=== PATIENT | female | born 1980 | race Caucasian/White ===

== ENCOUNTER 2021-12-28 12:37 | Emergency (ER) | payer BC, SELFPAY ==
[2021-12-28 13:24] VITALS: BP 131/88; PULSE 89; RESP 14; TEMP 37.2; O2SAT 93; BMI 31.8
--- NOTE | 2021-12-28 13:51 | CT_ITS ---
Final Report Patient: AKUA GARZA Facility:?[facility] Patient ID:?[id number] Site Patient ID:?[id number]. Site :?1980 Study:?CT Abdomen/Pelvis W/O-12/28/2021 3:22:45 PM Ordering Physician:Lizz Messina Final Report: INDICATION: Left flank pain. TECHNIQUE: CT abdomen and pelvis without contrast. COMPARISON: None. FINDINGS: Lower chest: Dependent atelectasis. Liver: Normal in size and attenuation. No suspicious masses. Gallbladder and bile ducts: No stones or inflammation. No biliary dilatation. Pancreas: Unremarkable. No mass or inflammation. Spleen: Normal in size. No masses. Adrenal glands: Normal in size. No nodules. Kidneys: Normal in size. No suspicious masses, stones, or hydronephrosis. Asymmetric left mild perinephric fat stranding. GI tract: Unremarkable. Normal in caliber. No sign of mass or inflammation. Normal appendix. Vasculature: Unremarkable. Lymph nodes: No lymphadenopathy. Abdominal wall/Omentum/Peritoneum: Unremarkable. No sign of mass or infiltration. No free air or significant free fluid. Pelvis: Uterus is surgically absent. Bones: Unremarkable for age. Degenerative disc disease at L5-S1. IMPRESSION: Mild asymmetric left perinephric fat stranding correlate with urinalysis for pyelonephritis. No stones or hydronephrosis. Please note that all CT scans at this facility use dose modulation, iterative reconstruction, and/or weight-based dosing when appropriate to reduce radiation dose to as low as reasonably achievable. Dictated by Cortez Martin MD @ 12/28/2021 3:41:01 PM (Electronic Signature)
--- NOTE | 2021-12-28 13:54 | CT_ITS ---
Final Report Patient: AKUA GARZA Facility:?[facility] Patient ID:?[id number] Site Patient ID:?[id number]. Site :?[id number] Study:?CT Chest W/65CC ISOVUE 370 PE PROTOCOL-12/28/2021 3:24:23 PM Ordering Physician:Lizz Messina Final Report: INDICATION: Chest pain, rule out PE. TECHNIQUE: CT chest PE was acquired with 95 cc Isovue 370 IV contrast. COMPARISON: None. FINDINGS: Heart and vasculature: Contrast opacification of the pulmonary arterial tree is adequate. No sign of pulmonary embolism. Heart size is normal. Thoracic aorta and pulmonary artery are normal in caliber. Lungs and pleural: No suspicious nodules or infiltrates. Bilateral bronchial wall thickening. Dependent atelectasis. No pleural effusions, pleural thickening, or pneumothorax. Lymph nodes/mediastinum: No mediastinal, hilar, or axillary adenopathy. Chest wall: No masses. Upper abdomen: No acute or significant findings. Bones: Unremarkable for age. IMPRESSION: 1. No evidence of pulmonary embolism. 2. Mild bilateral bronchial wall thickening. Please note that all CT scans at this facility use dose modulation, iterative reconstruction, and/or weight-based dosing when appropriate to reduce radiation dose to as low as reasonably achievable. Dictated by Cortez Martin MD @ 12/28/2021 4:02:01 PM (Electronic Signature)
--- NOTE | 2021-12-28 13:58 | ED.GENADULT ---
HPI - General Adult General Time Seen by Provider: 13:57 Date Seen: 12/28/21 Chief complaint: Abdominal Pain Stated complaint: Mid abdominal pain Time Seen by Provider: 12/28/21 13:10 Source: patient Mode of arrival: ambulatory Limitations: no limitations History of Present Illness HPI narrative: Patient is a 41-year-old white female has had a hysterectomy, and presents with left flank pain and lower mid the thoracic pain. This has been fine since yesterday. She had spells of this before in this month on the was seen at [facility], had an MRI scan of her back as well as a CT scan of her abdomen. These were unremarkable by her report, I do not have access to those records. The patient denies fever chills but describes significant pain with movement in her left lateral low back and midback thoracolumbar junction area. Denies any hematuria, dysuria, or urinary tract infection problems. She had blood work done and urinalysis done at [facility] and these apparently were unremarkable. She has had no skin rashes consistent with shingles. No COVID symptoms, no fevers, no chills, no rigors. No trauma. She does have chronic low back pain and takes tramadol for this. Related Data Home Medications Medication Instructions Recorded Confirmed citalopram 40 mg tablet mg 12/28/21 lisinopril 40 mg tablet mg 12/28/21 tramadol 50 mg tablet mg 12/28/21 Previous Rx's Medication Instructions Recorded sulfamethoxazole 800 1 tab PO BID 7 Days #14 tab 12/28/21 mg-trimethoprim 160 mg tablet tramadol 100 mg tablet 100 mg PO Q6H PRN #20 tab 12/28/21 Allergies Allergy/AdvReac Type Severity Reaction Status Date / Time No Known Drug Allergies Allergy Verified 12/28/21 14:01 Review of Systems Status of ROS: Reports: 10 or more systems reviewed and unremarkable except as noted in History and below [facility] Medical History No significant past medical history Social History Smoking Status: Current every day smoker What tobacco products do you use: cigarettes Do you use any of these nicotine containing products: None Second hand tobacco smoke exposure: Yes How often do you have a drink containing alcohol: 2-3 times a week AUDIT-C Alcohol total score: 3 Non-prescribed substance use: denies use service: No Exam Narrative: Exam Narrative: In general patient is in mild distress and discomfort. When she moves she winces with pain in her left lateral mid and low back. Vital signs unremarkable HEENT is unremarkable Neck is supple Pulses regular Abdomen benign soft nontender Mild left-sided abdominal and ribcage area tenderness lower. No real CVA tenderness, no rebound in the abdomen. No palpable masses. Skin exam shows no rashes about her trunk Neurologic is nonfocal good peripheral perfusion noted Mental status appropriate Const: Vital Signs, click to edit/add: Vital Signs - 24 hr 12/28/21 13:24 12/28/21 14:19 Temperature 99 F Pulse Rate [Pulse Oximeter] 89 73 Respiratory Rate 14 14 Blood Pressure [Ri ght Upper Arm] 131/88 127/100 H Pulse Oximetry 93 97 Course Course Hospital Course: Because of the patient's persistent complaints of left lateral chest and a abdominal discomfort. I think would be reasonable to repeat her CT scan make sure does not have a kidney stone that now is apparent, rib fracture, upper abdominal infection, pulmonary infection. She was in agreement. Will also give IV fluid, pain medic K obrien, and check labs Vital Signs Vital signs: Initial Vital Signs Temperature 99 F 12/28/21 13:24 Temperature Source Temporal Artery Scan 12/28/21 13:24 Pulse Rate 89 12/28/21 13:24 Pulse Rhythm 12/28/21 13:24 Respiratory Rate 14 12/28/21 13:24 Blood Pressure 131/88 12/28/21 13:24 Blood Pressure Mean 102 12/28/21 13:24 Pulse Oximetry 93 12/28/21 13:24 Oxygen Delivery Method 12/28/21 13:24 Vital Signs Temperature 99 F 12/28/21 13:24 Pulse Rate 89 12/28/21 13:24 Respiratory Rate 14 12/28/21 13:24 Blood Pressure 131/88 12/28/21 13:24 Pulse Oximetry 93 12/28/21 13:24 Temperature 99 F 12/28/21 13:24 Pulse Rate 73 12/28/21 14:19 Respiratory Rate 14 12/28/21 14:19 Blood Pressure 127/100 H 12/28/21 14:19 Pulse Oximetry 97 12/28/21 14:19 Medical Decision Making MDM Narrative Medical decision making narrative: The patient's CT scan shows some mild perinephric inflammation on the left. Her urinalysis looks pretty unremarkable, urine culture be obtained. I think given the findings on the left perinephric area and her left-sided flank pain, certainly pyelonephritis mild could be a consideration and will give her Rocephin IV, followed by Romel HOPKINS 1 p.o. b.i.d. x7 days at home. Will also refill 20 tramadol and she can use at for discomfort. Follow up with regular doctor by update tomorrow and recheck within a couple of days. Return return sooner problems or concerns Lab Data Labs: Lab Results 12/28/21 12/28/21 12/28/21 Range/Units 14:21 14:21 14:22 WBC 10.14 (4.50-11.00) K/uL RBC 3.87 L (4.00-5.20) m/uL Hgb 15.0 (12.0-16.0) gm/dL Hct 42.9 (33.0-51.0) % MCV 111 H (80-100) fL MCH 39 H (26-34) pg MCHC 35 (32-36) gm/dL RDW Coeff of Kelin 13.2 (11.5-15.5) % Plt Count 246 (140-440) K/uL Neut % (Auto) 73.3 H (42.0-72.0) % Lymph % (Auto) 19.9 L (20-44) % Young % (Auto) 6.0 (0.0-11.0) % Eos % (Auto) 0.4 (0.0-7.0) % Baso % (Auto) 0.1 (0.0-3.0) % Neut # (Auto) 7.40 H (1.7-7.0) K/uL Lymph # (Auto) 2.00 (0.90-2.90) K/uL Young # (Auto) 0.60 (0.00-0.90) K/UL Eos # (Auto) 0.04 (0.00-0.50) K/uL Baso # (Auto) 0.01 (0.00-0.30) K/uL Abs Immat Gran (auto) 0.03 (0.00-0.30) K/uL Sodium 136 (135-149) mmol/L Potassium 4.7 (3.6-5.1) mmol/L Chloride 107 (96-114) mmol/L Carbon Dioxide 23 (20-32) mmol/L BUN 18 (5-24) mg/dL Creatinine 1.1 (0.5-1.5) mg/dL Estimated Creat Clear 52.69 Glucose 106 (60-115) mg/dL Calcium 9.4 (8.4-10.6) mg/dL Total Bilirubin 0.9 (0.1-1.5) mg/dL Direct Bilirubin 0.4 (0.0-0.5) mg/dL AST 46 H (12-35) U/L ALT 35 (4-35) U/L Alkaline Phosphatase 70 (40-150) U/L C-Reactive Protein < 0.5 L (0.5-1.0) mg/dL Total Protein 7.2 (6.0-8.3) g/dL Albumin 4.2 (3.3-5.0) g/dL Urine Color Yellow (Yellow) Urine Appearance Clear (Clear) Urine pH 5.5 (5.0-8.5) Ur Specific [place] 1.020 (1.000-1.030) Urine Protein Negative (Negative) Urine Glucose (UA) Negative (Negative) Urine Ketones Negative (Negative) Urine Blood Trace-intact A (Negative) Urine Nitrite Negative (Negative) Urine Bilirubin Negative (Negative) Urine Urobilinogen 0.2 (0.2-1.0) Ur Leukocyte Esterase Negative (Negative) Urine RBC 0-2 (0-2) Urine WBC 0-2 (0-5) Ur Squamous Epith Cells Few (None-Few) Coarse Granular Casts Moderate A (None) Discharge Plan Discharge Clinical Impression: Abdominal pain, Pyelonephritis Patient Disposition: Home w/ Parent or Adult Condition: Improved Additional Instructions: septra ds x 1 week, fluids, tramadol and aleve as needed. update primary in 1-2 days Activity Level: No Restrictions Discharge Diet: Regular Prescriptions: New sulfamethoxazole-trimethoprim 800-160 mg tablet 1 tab PO BID 7 Days Qty: 14 0RF tramadol 100 mg tablet 100 mg PO Q6H PRN (Reason: pain) Qty: 20 0RF No Action citalopram 40 mg tablet 0RF Label Comments: TAKE 1 TABLET BY MOUTH ONE TIME DAILY tramadol 50 mg tablet 0RF lisinopril 40 mg tablet 0RF Label Comments: TAKE 1 TABLET BY MOUTH ONE TIME DAILY Stand Alone Forms: MyHealth Info Instructions
[2021-12-28] MEDS: 0.9 % SODIUM CHLORIDE 1000 ml 1,000 ML 6000 ML IV (14:16)
[2021-12-28 14:19] VITALS: BP 127/100; PULSE 73; RESP 14; O2SAT 97
[2021-12-28] MEDS: MORPHINE 4 MG/ML INJ IVP (14:20)
[2021-12-28 14:35] LABS: Basophils Absolute Auto 0.01 K/uL (0.00-0.30); Basophils Percent Auto 0.1 % (0.0-3.0); Eosinophils Absolute Auto 0.04 K/uL (0.00-0.50); Eosinophils Percent Auto 0.4 % (0.0-7.0); Hematocrit 42.9 % (33.0-51.0); Immature Granulocytes Abs Auto 0.03 K/uL (0.00-0.30); Lymphocytes Percent Auto 19.9 % (20-44); Mean Corpuscular HGB Conc 35 gm/dL (32-36); Mean Corpuscular Hemoglobin 39 pg (26-34); Mean Corpuscular Volume 111 fL (80-100); Neutrophils Percent Auto 73.3 % (42.0-72.0); Platelet Count* 246 K/uL (140-440); RDW Coefficient of Variation % 13.2 % (11.5-15.5); Red Blood Count 3.87 m/uL (4.00-5.20); White Blood Count* 10.14 K/uL (4.50-11.00)
[2021-12-28 14:45] LABS: Albumin* 4.2 g/dL (3.3-5.0); Chloride* 107 mmol/L (96-114)
[2021-12-28 14:46] LABS: Potassium* 4.7 mmol/L (3.6-5.1); Sodium* 136 mmol/L (135-149)
[2021-12-28 14:48] LABS: Creatinine* 1.1 mg/dL (0.5-1.5); Est. Creatinine Clearance* 52.69; Estimated Glomerular Filt Rate 64.34
[2021-12-28 14:49] LABS: Alanine Aminotransferase* 35 U/L (4-35); Alkaline Phosphatase* 70 U/L (40-150); Aspartate Amino Transferase* 46 U/L (12-35); Bilirubin Direct* 0.4 mg/dL (0.0-0.5); Bilirubin Total* 0.9 mg/dL (0.1-1.5); Blood Urea Nitrogen* 18 mg/dL (5-24); Calcium* 9.4 mg/dL (8.4-10.6); Carbon Dioxide* 23 mmol/L (20-32); Glucose* 106 mg/dL (60-115); Total Protein* 7.2 g/dL (6.0-8.3)
[2021-12-28 14:59] LABS: C Reactive Protein* < 0.5 mg/dL (0.5-1.0)
[2021-12-28 15:39] LABS: Appearance Urine Clear (Clear); Bilirubin Urine Negative (Negative); Blood Urine Trace-intact (Negative); Color Urine Yellow (Yellow); Glucose Urine Negative (Negative); Ketones Urine Negative (Negative); Leukocyte Esterase Urine Negative (Negative); Nitrite Urine Negative (Negative); Protein Urine Negative (Negative); Urobilinogen Urine 0.2 (0.2-1.0); pH Urine 5.5 (5.0-8.5)
--- NOTE | 2021-12-28 15:53 | ED.NURSE ---
Patient requesting more pain medication, MD aware.
[2021-12-28 16:13] LABS: RBC Urine 0-2 (0-2); Squamous Epithelial Cell Urine Few (None-Few); WBC Urine 0-2 (0-5)
[2021-12-28 16:14] LABS: Coarse Granular Casts Urine Moderate
[2021-12-28] MEDS: cefTRIAXone 1 GM in 0.9 % SODIUM CHLORIDE Mini-bag 100 ML IVPB (16:34)
[2021-12-28] MEDS: TRAMADOL HCL 50 MG TABLET 100 MG PO (17:13)
[2021-12-28 17:14] LABS: Slide Review Reflex No
== END 2021-12-28 17:18 | disposition home or self-care (01) ==
LOC: ED 16:38
PROVIDERS: Emergency Provider Family Medicine
DX: N12 Tubulo-interstitial nephritis, not specified as acute or chronic (principal)
CPT/HCPCS: 36415; 71260; 74176; 80048; 80076; 81001; 85025; 86140; 96365; 96375; 99284; A9270; J0696; J2270; J7030; Q9967

== ENCOUNTER 2022-06-15 11:28 | Emergency (ER) | payer BC, SELFPAY ==
[2022-06-15 11:41] VITALS: BP 157/98; PULSE 105; RESP 18; TEMP 37; O2SAT 97; BMI 30.5
--- NOTE | 2022-06-15 11:58 | ED.GENADULT ---
HPI - General Adult General Time Seen by Provider: 11:58 Date Seen: 06/15/22 Chief complaint: Unspecified Complaint, Adult Stated complaint: pain when breathing Time Seen by Provider: 06/15/22 11:56 Source: patient and RN notes reviewed Mode of arrival: ambulatory Limitations: no limitations History of Present Illness HPI narrative: This 42-year-old female is coming in with left-sided chest pain that she states is definitely her lung. It hurt more in her left upper shoulder area yesterday but today the pain is underneath her left breast. It hurts with breathing. She feels like it hurts worse laying down. She feels like things have to settle out with position changes before the pain abates. She has tramadol which she uses for her low back and it is not helping. She states she had an ibuprofen allergy when she was young where it made the back of her throat feel funny, possible swelling. She had fevers initially with an illness at the end of April, beginning of May where she had an upper respiratory illness. She has been continuing to cough since then. No current fevers. She is starting to feel short of breath with this. Denies any prior cardiac or pulmonary history. She may have had an early kidney infection about a year so ago but this feels definitely different. She states with certainty that this is her lung. With the initial illness, she did have negative home COVID test. She has had no prior history of thromboembolic disease, is on no hormones. She is status post hysterectomy. On a side, she states people feel that she has been acting differently at work. She is not sure if she has this quiet. She does start crying. She states she is worried about this left chest pain. I reassured her that we are certainly going to look into this. I did ask her if she is feeling depressed and she denied depression. Related Data Home Medications Medication Instructions Recorded Confirmed citalopram 40 mg tablet mg 12/28/21 lisinopril 40 mg tablet mg 12/28/21 tramadol 50 mg tablet mg 12/28/21 Previous Rx's Medication Instructions Recorded sulfamethoxazole 800 1 tab PO BID 7 days #14 tabs 12/28/21 mg-trimethoprim 160 mg tablet tramadol 100 mg tablet 100 mg PO Q6H PRN pain #20 tabs 12/28/21 acetaminophen 300 mg-codeine 30 mg 1 tab PO QHS #7 tabs 06/15/22 tablet naproxen 500 mg tablet 500 mg PO BID #20 tabs 06/15/22 Allergies Allergy/AdvReac Type Severity Reaction Status Date / Time No Known Drug Allergies Allergy Verified 12/28/21 14:01 Review of Systems Status of ROS: Reports: 10 or more systems reviewed and unremarkable except as noted in History and below [facility] Medical History No significant past medical history Social History Smoking Status: Current every day smoker What tobacco products do you use: cigarettes Do you use any of these nicotine containing products: None Second hand tobacco smoke exposure: Yes How often do you have a drink containing alcohol: 2-3 times a week AUDIT-C Alcohol total score: 3 Non-prescribed substance use: denies use service: No Exam Const: Vital Signs, click to edit/add: Vital Signs - 24 hr 06/15/22 11:41 06/15/22 13:44 06/15/22 13:45 Temperature 98.6 F Pulse Rate [Right Pulse Oximeter] 105 H 76 Respiratory Rate 18 16 Blood Pressure [Ri ght Upper Arm] 157/98 H 126/93 H Pulse Oximetry 97 97 97 Oxygen Delivery Me thod Room Air Room Air Documenting provider has reviewed patient's vital signs: yes Common normals: no apparent distress (But is mildly anxious due to her symptoms.), average body habitus, oriented x3, no limitations, healthy appearing, alert and well nourished General appearance: cooperative, comfortable, well kempt and well developed HENMT: Common normals: normocephalic, head/scalp atraumatic, hearing grossly normal bilaterally, external ears normal, external nose normal, nasal mucous membranes and turbinates normal, moist oral mucous membranes, oropharynx normal, dentition normal and gingiva normal Head and scalp: normocephalic and atraumatic Nose: external nose normal and nasal mucous membranes and turbinates normal External ear: external ears normal Eye: Common normals: PERRL, EOMs intact bilaterally, conjunctivae normal and no scleral icterus Conjunctiva: conjunctiva(e) normal Pupil: PERRL Neck & C-Spine: Common normals: full ROM, no lymphadenopathy, supple, no meningeal signs, no JVD and thyroid normal Thyroid: thyroid normal Chest: Common normals: inspection of chest normal and palpation of chest normal Resp: Common normals: normal respiratory effort, no retractions, no use of accessory muscles and clear to auscultation bilaterally Effort & inspection: able to speak in complete sentences Auscultation: clear to auscultation bilaterally Cardio: Common normals: no JVD, regular rate, regular rhythm, S1 normal heart sound, S2 normal heart sound, no gallops, no clicks, no murmurs and no rub Rate: regular rate Rhythm: regular rhythm Heart sounds: S1 normal and S2 normal GI: Common normals: Normal to inspection, nondistended, normoactive bowel sounds present, soft to palpation, non-tender, no hepatosplenomegaly and no masses Palpation: soft and no hepatosplenomegaly Extremity: Other: No lower extremity edema, no calf tenderness. Neuro: Common normals: oriented x3, CN's II-XII intact bilaterally, moves all extremities, no focal motor deficits and no sensory deficits noted Sensorium/orientation: alert Meningeal signs: no meningeal signs Psych: Appearance: well kempt Course Course Hospital Course: Have reviewed with her that such things like pneumothorax, thromboembolic disease, complications of pneumonia with pleural effusion are all possible entities. This could be something as simple as pleurisy which is inflammation of the lining of the lung. Have reviewed with her the workup, possibility of requiring chest CT PE protocol. We will also consider such things as cardiac disease in myocarditis although this is less likely. She is presenting with pleuritic left chest pain. Will have her on appropriate monitoring, get appropriate labs and start with a portable chest x-ray. Reevaluation(s) Reevaluation #1: Have reviewed the normal workup with the patient. She is quite concerned. She states it feels like her ribs are going to break it hurts that bad. She relays a history of when her dad was about her age, ended up with pneumonia and then had a collapsed lung. I reassured her that we certainly do not see this on a chest x-ray. Did discuss further advanced imaging despite the normal workup. We considered options and she would like to proceed with doing chest CT. I will do chest CT PE protocol as she was tachycardic when she did come in. Despite a normal D-dimer, there is enough in her history that I do think it is prudent to proceed and rule out underlying pathology with this advanced imaging. Will also try to give her some oral pain medicines. She can tolerate Naprosyn. Will try oral Naprosyn and an oral dose oxycodone for her pain. Time: 13:57 Reevaluation #2: Reviewed with patient her chest CT is negative for any pulmonary emboli. They do see some stable bronchial wall thickening. Reviewed that this is likely a postinflammatory change from her respiratory illness. She states her coughing is bad, interrupts her CPAP use at night. We will give her some Tylenol No. 3 to use for some pain management as well as cough suppressant at bedtime. Will use Naprosyn which she has tolerated for anti-inflammatory relief of probable pleurisy on the left side. Time: 15:42 Vital Signs Vital signs: Initial Vital Signs Temperature 98.6 F 06/15/22 11:41 Temperature Source Temporal Artery Scan 06/15/22 11:41 Pulse Rate 105 H 06/15/22 11:41 Respiratory Rate 18 06/15/22 11:41 Blood Pressure 157/98 H 06/15/22 11:41 Blood Pressure Mean 117 06/15/22 11:41 Blood Pressure Position Sitting 06/15/22 11:41 Pulse Oximetry 97 06/15/22 11:41 Oxygen Delivery Method 06/15/22 11:41 Vital Signs Temperature 98.6 F 06/15/22 11:41 Pulse Rate 105 H 06/15/22 11:41 Respiratory Rate 18 06/15/22 11:41 Blood Pressure 157/98 H 06/15/22 11:41 Pulse Oximetry 97 06/15/22 11:41 Oxygen Delivery Method 06/15/22 11:41 Temperature 98.6 F 06/15/22 11:41 Pulse Rate 76 06/15/22 13:44 Respiratory Rate 16 06/15/22 13:44 Blood Pressure 126/93 H 06/15/22 13:44 Pulse Oximetry 97 06/15/22 13:45 Oxygen Delivery Method 06/15/22 13:44 Medical Decision Making Lab Data Lab results reviewed: Yes I reviewed the patient's lab results Labs: Lab Results 06/15/22 06/15/22 06/15/22 Range/Units 12:31 12:31 12:31 WBC 8.91 (4.50-11.00) K/uL RBC 4.22 (4.00-5.20) m/uL Hgb 15.6 (12.0-16.0) gm/dL Hct 44.6 (33.0-51.0) % MCV 106 H (80-100) fL MCH 37 H (26-34) pg MCHC 35 (32-36) gm/dL RDW Coeff of Kelin 12.3 (11.5-15.5) % Plt Count 235 (140-440) K/uL Neut % (Auto) 66.7 (42.0-72.0) % Lymph % (Auto) 23.5 (20-44) % [place] % (Auto) 8.3 (0.0-11.0) % Eos % (Auto) 1.0 (0.0-7.0) % Baso % (Auto) 0.2 (0.0-3.0) % Neut # (Auto) 5.94 (1.7-7.0) K/uL Lymph # (Auto) 2.09 (0.90-2.90) K/uL [place] # (Auto) 0.70 (0.00-0.90) K/UL Eos # (Auto) 0.09 (0.00-0.50) K/uL Baso # (Auto) 0.02 (0.00-0.30) K/uL Abs Immat Gran (auto) 0.03 (0.00-0.30) K/uL Imm/Tot Granulo (auto) 0.3 % Diff Slide Review Acceptable Review (Acceptable) D-Dimer Quant (PE/DVT) 0.31 (0.00-0.50) ug/ml Sodium 137 (135-149) mmol/L Potassium 4.7 (3.6-5.1) mmol/L Chloride 106 (96-114) mmol/L Carbon Dioxide 24 (20-32) mmol/L BUN 15 (5-24) mg/dL Creatinine 0.7 (0.5-1.5) mg/dL Estimated Creat Clear 81.96 Estimated GFR 110 ml/min Glucose 101 (60-115) mg/dL Calcium 9.9 (8.4-10.6) mg/dL C-Reactive Protein 0.6 (0.5-1.0) mg/dL POC Troponin I (0.01-0.04) ng/ml 06/15/22 Range/Units 12:31 WBC (4.50-11.00) K/uL RBC (4.00-5.20) m/uL Hgb (12.0-16.0) gm/dL Hct (33.0-51.0) % MCV (80-100) fL MCH (26-34) pg MCHC (32-36) gm/dL RDW Coeff of Kelin (11.5-15.5) % Plt Count (140-440) K/uL Neut % (Auto) (42.0-72.0) % Lymph % (Auto) (20-44) % [place] % (Auto) (0.0-11.0) % Eos % (Auto) (0.0-7.0) % Baso % (Auto) (0.0-3.0) % Neut # (Auto) (1.7-7.0) K/uL Lymph # (Auto) (0.90-2.90) K/uL [place] # (Auto) (0.00-0.90) K/UL Eos # (Auto) (0.00-0.50) K/uL Baso # (Auto) (0.00-0.30) K/uL Abs Immat Gran (auto) (0.00-0.30) K/uL Imm/Tot Granulo (auto) % Diff Slide Review (Acceptable) D-Dimer Quant (PE/DVT) (0.00-0.50) ug/ml Sodium (135-149) mmol/L Potassium (3.6-5.1) mmol/L Chloride (96-114) mmol/L Carbon Dioxide (20-32) mmol/L BUN (5-24) mg/dL Creatinine (0.5-1.5) mg/dL Estimated Creat Clear Estimated GFR ml/min Glucose (60-115) mg/dL Calcium (8.4-10.6) mg/dL C-Reactive Protein (0.5-1.0) mg/dL POC Troponin I 0.00 L (0.01-0.04) ng/ml Imaging Data Chest x-ray: Attestation: I have reviewed the pertinent imaging results. My impression: No acute pathology on my preliminary review of this portable chest x-ray. Radiologist's impression: Patient: AKUA GARZA Facility:?[facility] Patient ID:?[id number] Site Patient ID:?[id number]. Site :?[id number] Study:?XRay Chest PORTABLE ONE VIEW-06/15/2022 12:32:26 PM Ordering Physician:Roshni San Final Report: Indication: Pleuritic left chest pain. Technique: One view sitting portable AP chest x-ray Comparison: None are available Findings: Lungs clear. No pleural fluid or pneumothorax. Heart normal. Rose unremarkable. No musculoskeletal abnormality Impression: Negative portable chest x-ray. Dictated by Siddharth Augustine MD @ 06/15/2022 12:49:32 PM (Electronic Signature) CT scan - chest: Attestation: I have reviewed the pertinent imaging results. Radiologist's impression: Patient: AKUA GARZA Facility:?[facility] Patient ID:?[id number] Site Patient ID:?[id number]. Site :?[id number] Study:?CT Chest Angio 95CC ISOVUE 370-06/15/2022 2:56:31 PM Ordering Physician:?Wally San Final Report: INDICATION: Tachycardia, left chest pain for 1 day, started as back pain. COMPARISON: CT chest 12/28/2021. Chest radiograph 06/15/2022. TECHNIQUE: CT of the chest with 95 cc of Isovue 370 IV contrast. Coronal and sagittal reconstructions. 3D post processing was performed. FINDINGS: Normal heart size. Normal caliber thoracic aorta and central pulmonary arteries. No evidence of aortic dissection. Negative for acute pulmonary embolism. No pericardial effusion. No thoracic lymphadenopathy. The imaged thyroid gland is normal in appearance. No focal consolidation, pleural effusion, or pneumothorax. No pulmonary nodules identified. Mild bilateral bronchial wall thickening similar to prior exam. No central endobronchial lesion. The visualized upper abdomen is unremarkable. The bones are within normal limits. IMPRESSION: 1. Negative for acute pulmonary embolism. 2. Stable mild bronchial wall thickening. Please note that all CT scans at this facility use dose modulation, iterative reconstruction, and/or weight-based dosing when appropriate to reduce radiation dose to as low as reasonably achievable. Dictated by Nidhi Danielson MD @ 06/15/2022 3:25:40 PM (Electronic Signature) Critical Care Time Critical Care Time Critical Care Time: No Discharge Plan Discharge Clinical Impression: Post-viral cough syndrome, Pleurisy Patient Disposition: Home, Self-Care Condition: Stable Instructions: Pleurisy (ED) Additional Instructions: Take the naproxen twice a day scheduled for anti-inflammatory relief. Can supplement with Tylenol, 1000 mg up to 3 times a day for extra pain relief. Will write for small prescription of Tylenol No. 3 to be used at night to help with sleep and pain management. May need to drop a dose of the regular Tylenol if using the Tylenol No. 3 at night, do not want to overdose on Tylenol and we would recommend that your maximum daily dosing of Tylenol is 3000 mg per 24 hours. Recommend recheck with your primary care provider within the next week if not improving. If you develop severe increased pain, develops fever with this, have increasing cough or difficulty breathing, return to the ER for further evaluation. Activity Level: Activity as Tolerated Prescriptions: New naproxen 500 mg tablet 500 mg PO BID Qty: 20 0RF acetaminophen-codeine 300-30 mg tablet 1 tab PO QHS Qty: 7 0RF No Action citalopram 40 mg tablet Label Comments: TAKE 1 TABLET BY MOUTH ONE TIME DAILY tramadol 50 mg tablet lisinopril 40 mg tablet Label Comments: TAKE 1 TABLET BY MOUTH ONE TIME DAILY sulfamethoxazole-trimethoprim 800-160 mg tablet 1 tab PO BID 7 Days Qty: 14 0RF tramadol 100 mg tablet 100 mg PO Q6H PRN (Reason: pain) Qty: 20 0RF Follow Up/Referrals: Provider,Not a Local [Primary Care Provider] - Stand Alone Forms: [employer] Info Instructions
--- NOTE | 2022-06-15 12:12 | CRLHL7_ITS ---
For Patients: As a result of the Century Cures Act, medical imaging exams and procedure reports are released immediately into your electronic medical record. You may view this report before your referring provider. If you have questions, please contact your health care provider. Indication: Pleuritic left chest pain. Technique: One view sitting portable AP chest x-ray Comparison: None are available Findings: Lungs clear. No pleural fluid or pneumothorax. Heart normal. Rose unremarkable. No musculoskeletal abnormality Impression: Negative portable chest x-ray. Dictated by Siddharth Augustine MD @ 06/15/2022 12:49:32 PM (Electronically Signed)
[2022-06-15 12:38] LABS: Basophils Absolute Auto 0.02 K/uL (0.00-0.30); Basophils Percent Auto 0.2 % (0.0-3.0); Eosinophils Absolute Auto 0.09 K/uL (0.00-0.50); Hematocrit 44.6 % (33.0-51.0); Hemoglobin* 15.6 gm/dL (12.0-16.0); Immature Granulocytes Abs Auto 0.03 K/uL (0.00-0.30); Immature Granulocytes Pct Auto 0.3 %; Lymphocytes Absolute Auto 2.09 K/uL (0.90-2.90); Lymphocytes Percent Auto 23.5 % (20-44); Mean Corpuscular HGB Conc 35 gm/dL (32-36); Mean Corpuscular Hemoglobin 37 pg (26-34); Mean Corpuscular Volume 106 fL (80-100); Monocytes Percent Auto 8.3 % (0.0-11.0); Neutrophils Absolute Auto 5.94 K/uL (1.7-7.0); Neutrophils Percent Auto 66.7 % (42.0-72.0); Platelet Count* 235 K/uL (140-440); RDW Coefficient of Variation % 12.3 % (11.5-15.5); Red Blood Count 4.22 m/uL (4.00-5.20); White Blood Count* 8.91 K/uL (4.50-11.00)
[2022-06-15 12:43] LABS: Slide Review Reflex Yes
[2022-06-15 12:53] LABS: Chloride* 106 mmol/L (96-114); Potassium* 4.7 mmol/L (3.6-5.1); Sodium* 137 mmol/L (135-149)
[2022-06-15 12:56] LABS: Creatinine* 0.7 mg/dL (0.5-1.5); Est. Creatinine Clearance* 81.96; Estimated Glomerular Filt Rate 110 ml/min
[2022-06-15 12:57] LABS: Blood Urea Nitrogen* 15 mg/dL (5-24); Calcium* 9.9 mg/dL (8.4-10.6); Carbon Dioxide* 24 mmol/L (20-32); Glucose* 101 mg/dL (60-115)
[2022-06-15 12:58] LABS: D Dimer Quantitative* 0.31 ug/ml (0.00-0.50)
[2022-06-15 13:00] LABS: C Reactive Protein* 0.6 mg/dL (0.5-1.0)
[2022-06-15 13:12] LABS: Slide Review Acceptable Review (Acceptable)
[2022-06-15 13:44] VITALS: BP 126/93; PULSE 76; RESP 16; O2SAT 97
[2022-06-15 13:45] VITALS: O2SAT 97
[2022-06-15] MEDS: OXYCODONE 5 MG TABLET PO (13:47)
--- NOTE | 2022-06-15 13:59 | CRLHL7_ITS ---
For Patients: As a result of the Century Cures Act, medical imaging exams and procedure reports are released immediately into your electronic medical record. You may view this report before your referring provider. If you have questions, please contact your health care provider. INDICATION: Tachycardia, left chest pain for 1 day, started as back pain. COMPARISON: CT chest 12/28/2021. Chest radiograph 06/15/2022. TECHNIQUE: CT of the chest with 95 cc of Isovue 370 IV contrast. Coronal and sagittal reconstructions. 3D post processing was performed. FINDINGS: Normal heart size. Normal caliber thoracic aorta and central pulmonary arteries. No evidence of aortic dissection. Negative for acute pulmonary embolism. No pericardial effusion. No thoracic lymphadenopathy. The imaged thyroid gland is normal in appearance. No focal consolidation, pleural effusion, or pneumothorax. No pulmonary nodules identified. Mild bilateral bronchial wall thickening similar to prior exam. No central endobronchial lesion. The visualized upper abdomen is unremarkable. The bones are within normal limits. IMPRESSION: 1. Negative for acute pulmonary embolism. 2. Stable mild bronchial wall thickening. Please note that all CT scans at this facility use dose modulation, iterative reconstruction, and/or weight-based dosing when appropriate to reduce radiation dose to as low as reasonably achievable. Dictated by Nidhi Danielson MD @ 06/15/2022 3:25:40 PM (Electronically Signed)
[2022-06-15] MEDS: NAPROXEN 250 MG TABLET 500 MG PO (14:33)
== END 2022-06-15 16:17 | disposition home or self-care (01) ==
PROVIDERS: Emergency Provider Family Medicine
DX: R05.8 Other specified cough (principal); R09.1 Pleurisy
CPT/HCPCS: 36415; 71045; 71260; 80048; 84484; 85025; 85379; 86140; 93005; 94761; 99284; 99285; A9270; Q9967